=== PATIENT | female | born 1960 | race Caucasian/White ===

== ENCOUNTER → 2017-04-19 | Outpatient (CLI) | payer OTHER ==
[~2017-04-19] MED LIST: CELEXA10 MG PO; DIABETA 5MG5 MG/TAB PO; DILAUDID 2MG TAB2 MG PO; DILAUDID 4MG TAB4 MG PO; FLEXERIL 1010 MG/TAB PO; GLUCOPHAGE500 MG/TAB PO; HUMALOG100 U/ML SQ; RESTORIL 77.5 MG/CAP PO; ULTRAM 50MG TAB50 MG PO; XANAX 1MG1 MG PO
== END ==
LOC: MHCPAIN 14:20
DX: G89.29 Other chronic pain (principal); M47.27 Other spondylosis with radiculopathy, lumbosacral region; M53.3 Sacrococcygeal disorders, not elsewhere classified; M96.1 Postlaminectomy syndrome, not elsewhere classified
CPT/HCPCS: G0463